=== PATIENT | female | born 1970 | race Caucasian/White ===

== ENCOUNTER 2017-09-19 21:03 | Emergency (ER) | payer MEDICAID ==
[~2017-09-19] VITALS: Ht 152.4 cm; Wt 63.7 kg
[2017-09-19 21:32] VITALS: Ht 152.4 cm; Wt 63.7 kg
[2017-09-19 23:20] LABS: BASOPHIL % 0.4 % (0-2); PLATELET COUNT 241 x10^3mcL (130-400); RED CELL DISTRIBUTION WIDTH 12.9 % (11.5-14.5)
[2017-09-19 23:42] LABS: CALCIUM 8.5 mg/dL (8.5-10.1); CARBON DIOXIDE 26.4 mmol/L (21-32); CHLORIDE SERUM 103 mmol/L (98-107); CREATININE SERUM 0.8 mg/dL (0.6-1.0); GFR1 > 60 mL/min; GLUCOSE SERUM 95 mg/dL (74-106); POTASSIUM SERUM 4.2 mmol/L (3.5-5.1); SODIUM SERUM 136 mmol/L (136-145)
[2017-09-19 23:47] LABS: ALBUMIN 3.4 g/dL (3.4-5.0); ALKALINE PHOSPHATASE 52 U/L (46-116); ALT/SGPT 24 U/L (14-59); AST/SGOT 18 U/L (15-37); BILIRUBIN TOTAL 0.2 mg/dL (0.20-1.00); TOTAL PROTEIN, SERUM 7.2 g/dL (6.4-8.2)
[2017-09-20 00:34] VITALS: BP 95/69
== END 2017-09-20 00:34 | disposition home or self-care (01) ==
LOC: ED 21:03
PROVIDERS: Specialist
DX: F41.9 Anxiety disorder, unspecified (principal)
CPT/HCPCS: 36415

== ENCOUNTER 2018-06-08 14:10 | Emergency (ER) | payer MEDICAID ==
[~2018-06-08] VITALS: Ht 162.6 cm; Wt 66.7 kg
[2018-06-08 15:11] LABS: BASOPHIL % 0.3 % (0-2); PLATELET COUNT 228 x10^3mcL (130-400)
[2018-06-08 16:16] LABS: CALCIUM 8.3 mg/dL (8.5-10.1); CARBON DIOXIDE 22.1 mmol/L (21-32); CHLORIDE SERUM 104 mmol/L (98-107); CREATININE SERUM 0.7 mg/dL (0.6-1.0); GFR1 > 60 mL/min; GLUCOSE SERUM 100 mg/dL (74-106); POTASSIUM SERUM 3.4 mmol/L (3.5-5.1); SODIUM SERUM 139 mmol/L (136-145)
[2018-06-08 19:21] VITALS: BP 92/56
== END 2018-06-08 19:21 | disposition home or self-care (01) ==
LOC: ED 14:10
PROVIDERS: Emergency Medicine
DX: N92.0 Excessive and frequent menstruation with regular cycle (principal); J45.909 Unspecified asthma, uncomplicated
CPT/HCPCS: Q0092

== ENCOUNTER 2018-06-11 15:29 | Inpatient (IN) | payer MEDICAID ==
[~2018-06-11] VITALS: Ht 152.4 cm; Wt 65.6 kg
--- NOTE | 2018-06-11 15:59 | NUR ---
PT BIB SELF WITH C/U VAGINAL BLEEDING SINCE 05/19/18. AT BEDSIDE PT IS AAOX4. RESPS E/U. SKIN IS PINK, WARM AND DRY. PT ORIENTED TO ROOM, USE OF CALL CODY AND BED IN LOWEST POSITION. PT AMBULATED TO ROOM WITH STEADY GAIT AND PLACED ON MONITOR. PT AWAITING MSE.
[2018-06-11 17:00] LABS: BASOPHIL % 0.5 % (0-2); PLATELET COUNT 231 x10^3mcL (130-400)
[2018-06-11 17:02] LABS: RED CELL DISTRIBUTION WIDTH 14.8 % (11.5-14.5)
--- NOTE | 2018-06-11 17:06 | NUR ---
PER DR. TSAI ONLY DO 1L OF NS, NOT 2L.
[2018-06-11 17:28] LABS: rbc morphology (normal/abnorm) ABNORMAL (NORMAL)
--- NOTE | 2018-06-11 18:29 | NUR ---
DR. TSAI MADE AWARE OF BP=82/59, NO NEW ORDERS AT THIS MOMENT.
--- NOTE | 2018-06-11 19:12 | NUR ---
REPORT GIVEN TO SHERRI FRANCO FROM [facility]
[2018-06-11 19:25] LABS: ALKALINE PHOSPHATASE 26 U/L (46-116); ALT/SGPT 19 U/L (14-59); AST/SGOT 19 U/L (15-37); CALCIUM 7.6 mg/dL (8.5-10.1); CARBON DIOXIDE 24.1 mmol/L (21-32); CHLORIDE SERUM 102 mmol/L (98-107); CHOLESTEROL 145 mg/dL (<200); CHOLESTEROL/HDL RATIO 3.2; CREATININE SERUM 0.7 mg/dL (0.6-1.0); GFR1 > 60 mL/min; GLUCOSE SERUM 87 mg/dL (74-106); HDL CHOLESTEROL 45 mg/dL (40-60); MAGNESIUM 2.1 mg/dL (1.8-2.4); PHOSPHOROUS 1.6 mg/dL (2.5-4.9); POTASSIUM SERUM 3.4 mmol/L (3.5-5.1); SODIUM SERUM 134 mmol/L (136-145); TRIGLYCERIDES 183 mg/dL (<150)
[2018-06-11 19:27] LABS: ALBUMIN 2.7 g/dL (3.4-5.0); TOTAL PROTEIN, SERUM 5.9 g/dL (6.4-8.2)
[2018-06-11 19:32] LABS: FREE T4 0.85 ng/dL (0.76-1.46); FREE THYROXINE INDEX 2.2 ug/dL (1.4-4.5); T4(THYROXINE) 8.2 ug/dL (4.7-13.3)
[2018-06-11 19:33] LABS: T3 TOTAL 1.33 ng/mL
--- NOTE | 2018-06-11 19:40 | NUR ---
[facility], CAME IN DUE TO VAGINAL BLEED SINCE MAY 19. AAOX4. DENIES HEADACHE/DIZZINESS. NO SOB NOTED, LUNG SOUNDS CTA. DENIES CHEST PAIN/PRESSURE. DENIES ABDOMINAL DISCOMFORT. PT STATED THAT SHE STILL HAS THE VAGINAL BLEED, SMALL IN AMOUNT AT THIS TIME, HAS CHANGED HER PADS X3 TODAY. VOIDS. IV SITE PATENT AND INTACT. SIDE RAILS UPX2. CALL LIGHT ON REACH. ENDORSED TO PRIMARY NURSE SHERRI FOR CONTINUITY OF CARE
[2018-06-11 19:50] VITALS: BP 99/58
[2018-06-11 19:53] LABS: BILIRUBIN TOTAL 0.1 mg/dL (0.20-1.00)
[2018-06-11 19:57] VITALS: Ht 152.4 cm; Wt 65.6 kg
--- NOTE | 2018-06-11 20:00 | NUR ---
BEDSIDE HANDS OFF FROM [employer] [facility]- PATIENT IS ALERT AND ORIENTED X4, UKRAINIAN SPEAKING, PATIENT ADMITTED WITH CHIEF COMPLAINT OF WEAKNESS,DIZZINESS, MONTHLY PERIOD SINCE MAY. PATIENT ACQUIANTED TO BEDSIDE EQUIPMENTS AND UNIT POLICIES, CALL LIGHT PLACED IN REACH.INFORMED ABOUT POC. SAFETY/FALL PRECAUTIONS MAINTAINED. WILL CONTINUE MONITOR.
[2018-06-11] MEDS ORDERED: FERROUS SULFAT325 M2 PO (20:13)
--- NOTE | 2018-06-11 22:52 | NUR ---
PATIENT INSTRUCTED TO CALL NURSE IF TRABSFUSION REACTION OCCUR SUCH CHEST PAINS, FLANK PAIN, ITCHINESS,SOB. VERBALIZED UNDERSTNADING.
--- NOTE | 2018-06-11 22:57 | NUR ---
2255- FIRST UNIT OF PRB STARTED THIS TIME, UNIT #[id number], PATIENT A POSITIVE AND DONOR IS A POSITIVE, PRE BP=91/53, HR=65BPM, RR=18BPM, TEMP=98.3, TEMPORAL, PATIENT SLIGHTLY ANXIOUS MEDICATED PRN. INITIAL RATE AT 50 ML/HR AND TO BE OBSERVED. WILL CONTINUE TO MONITOR.
--- NOTE | 2018-06-11 23:10 | NUR ---
15 MINS VITAL SIGNS, TEMP=97.4, HR=92BPM, RR=16BPM, BP=84/56, MAP=66. DENIED ANY TRANSUSION REACTION THIS TIME.
--- NOTE | 2018-06-12 00:57 | NUR ---
0055 FIRST UNIT PRBC BLOOD TRANSFUSION COMPLETED, PATIENT TOLERATED PROCEDURE, NO UNTOWARDS BT REACTIONS, BP=93/55, MAP=67, HR=78BPM, RR=20BPM, TEMP=98.8,. SAT ON 2LNC WAS 100%.ALSO NOTIFIED DR BUCKNER ABOUT ABOVE BP , ORDERED TO HOLD LASIX POST BT.
--- NOTE | 2018-06-12 02:21 | NUR ---
SECOND UNIT OF PRBC STARTED THIS TIME, PRE MEDICATED WITH TYLENOL 650 MG PO AND BENADRYL 25 MG PO, PRE WF=406/57, HR=74BPM, RR=18BPM, TEMP 98.6 , SAT 100% ON 2LNC.PATIENT INFORMED AGAIN TO REPORT TO NURSE OF BT REACTIONS OCCURS, SUCH CHEST PAIN, SOB, FLANK PAIN AND ITCHINESS. WILL CONTINUE TO MONITOR.
--- NOTE | 2018-06-12 05:05 | NUR ---
SECOND UNITS OF PRBC COMPLETED THIS TIME, POST VITAL SIGN TEMP=99.0, HR=74BPM, RR=20BPM, JH=095/81, (91), SAT ON ROOM AIR 100%. RUN SALINE POST.
[2018-06-12 05:48] VITALS: BP 111/81
--- NOTE | 2018-06-12 06:20 | NUR ---
PATIENT STATED FELT BETTER AND LITTLE STRONGER AFTER BLOOD TRANSFUSION, NO TRANSFUSION REACTION ENCOUNTERED DURING THE PROCESS, DR BUCKNER ORDER TO HOLD LASIX POST SECOND UNIT. VOIDED WITHOUT DIFF, PATIENT ON HER PERIOD, UA COLOR LIGHT RED. AMBULATED WITH STEADY GAIT, DENIED DIZZINESS BUT STATED WEAKNESS. SAFETY/FALL PRECAUTIONS MAINTAINED. WILL ENDORSE CONTINUITY OF CARE TO INCOMING NURSE.
[2018-06-12 06:59] LABS: BASOPHIL % 0.4 % (0-2); PLATELET COUNT 219 x10^3mcL (130-400)
[2018-06-12 07:08] LABS: CALCIUM 7.4 mg/dL (8.5-10.1); CARBON DIOXIDE 22.9 mmol/L (21-32); CHLORIDE SERUM 107 mmol/L (98-107); CREATININE SERUM 0.8 mg/dL (0.6-1.0); GFR1 > 60 mL/min; GLUCOSE SERUM 84 mg/dL (74-106); POTASSIUM SERUM 3.9 mmol/L (3.5-5.1); SODIUM SERUM 140 mmol/L (136-145)
--- NOTE | 2018-06-12 07:21 | NUR ---
BEDSIDE HANDS OFF AND INTRODUCTION PERFORMED WITH INCOMING NURSE DILCIA.
--- NOTE | 2018-06-12 08:00 | NUR ---
REEIVED FROM PREVIOUS SHIFT AND DENIES PAIN AT THIS TIME. NOTED RECEIVED TRANSFUION AND NO ADVERS REACTION WAS SEEN. NITIN HAS DENIED AND ACTURE BLEEDING AND HAS NO CRAMPING, PAIN OR NAUSEA AT THIS TIME. WILL CONTINUE TO MONITOR.
[2018-06-12 08:01] LABS: UA SPECIFIC GRAVITY 1.015 (1.005-1.035)
[2018-06-12 08:02] LABS: microscopic required? YES
[2018-06-12 08:03] LABS: urine erythrocyte 3+ (NEGATIVE)
[2018-06-12 08:11] LABS: RED CELL DISTRIBUTION WIDTH 15.9 % (11.5-14.5)
[2018-06-12 10:12] VITALS: BP 70/48
--- NOTE | 2018-06-12 10:33 | NUR ---
RECEIVED PATIENT ALERT AND ORIENTED WITH MARKED GENERAL WEAKNESS. LOTUS CASTRO BEENON IRON AND HAD A TRANSFUSION LAST NIGHT. THE GRULLON AHD O IFS PENDING AT THIS TIME. NOTED THE BP IS LOW AND PERSISTANTLY LOW AND THE LASIX WAS HELD AND TH EDOCTOR WAS AWARE. LUNGS ARE CLEAR AND BOWEL SOUNDS ACTIVE. PATIENT TOLERATED THE DIET OFFERED. SHE IS ENCOURAGED TO REQUEST ASSIST IF DIZZNESS NOR FEELING WEAKN. SHE DENIES ANY OF THAT AT THIS TIME AND DENIES PAIN. VITALS AT THIS TIME AT 98.5, 74, 18, 111/81, 98% ON ROOM AIR. WILL CONTINUE TO MONITOR INDICATED AND NO ADVERSE REACTION TO THE TRANSFUSION NOTED.
[2018-06-12 11:01] VITALS: BP 70/48
--- NOTE | 2018-06-12 11:53 | NUR ---
Discount pharmacy card and list to low cost medical clinics given to patient by Sánchez.
--- NOTE | 2018-06-12 12:10 | NUR ---
SPOKE WITH THE RESIDENT AND PATIENT IS FOR DISCHARGE HOME SHE HAS AN APPOINTMENT AT 1300 WITH [facility]. PATIENT HAS BEEN ASYMPTOMATIC AND THE BP NOW AT 85/59 AND ADVISED THE RESIDNET OF THIS. PATIENT IS ANXIOUS TO GO AND NTED PREVIOUS LOW BP AND THE LASIX AND BENADRYL HELD WIT THE TRANSFUSION LAST NIGHT PATIENT H AND H HAS IMPROVED AND WILL DISCHARGE HOME PER THE RESIDENT WITH IRON FOR PATIENT TO TAKE AT HOME. DENIES ANY VAGINAL BLEEDING, CRAMPING, DIZZINESS OR PAIN AT THIS TIME.
[2018-06-12 12:18] VITALS: BP 85/59
== END 2018-06-12 13:00 | disposition home or self-care (01) | DRG 663 ==
LOC: ED 15:29 → MU 18:46
PROVIDERS: Emergency Medicine; ADMIT Internal Medicine
DX: D62 Acute posthemorrhagic anemia (principal); E43 Unspecified severe protein-calorie malnutrition; I95.9 Hypotension, unspecified; E87.1 Hypo-osmolality and hyponatremia; E83.39 Other disorders of phosphorus metabolism; N93.8 Other specified abnormal uterine and vaginal bleeding; E78.5 Hyperlipidemia, unspecified; E87.6 Hypokalemia; J45.909 Unspecified asthma, uncomplicated; K21.9 Gastro-esophageal reflux disease without esophagitis; Z68.29 Body mass index [BMI] 29.0-29.9, adult
CPT/HCPCS: 84439; J7030; J7050; P9016; Q0163